=== PATIENT | female | born 1985 | race Caucasian/White ===

== ENCOUNTER 2016-09-06 09:26 | Day surgery (SDC) | payer OTHER ==
[2016-09-05 13:06] VITALS: BMI 36.7
[~2016-09-06] VITALS: Ht 170.2 cm; Wt 109.7 kg
[2016-09-06] VITALS (12 sets, daily range): BP systolic 133–151; BP diastolic 75–90; PULSE 72–89; RESP 11–21; Ht 170.2 cm; Wt 109.7 kg
[~2016-09-06 09:26] MED LIST: CEFAZOLIN 1 GM INJ ONE; LAB200 PO; LACTATED RINGER'S 1,000 ML IV SCH; PREN1TAB49 PO
[2016-09-06 10:42] LABS: ADD SCAN DIFF NO
[2016-09-06 11:02] LABS: BASOPHILS % 0.4 % (0.0-2.0); EOSINOPHILS # 0.2 10^3/ul (0.0-0.5); EOSINOPHILS % 3.1 % (0.0-7.0); HEMATOCRIT 31.7 % (37.0-47.0); HEMOGLOBIN 10.3 g/dl (12.0-16.0); LYMPHOCYTES # 1.9 10^3/ul (0.8-2.9); MEAN CORPUSCULAR HEMOGLOBIN 25.6 pg (29.0-33.0); MEAN CORPUSCULAR HGB CONC 32.5 g/dl (32.0-37.0); MEAN CORPUSCULAR VOLUME 78.7 fl (82.0-101.0); MEAN PLATELET VOLUME 9.9 fl (7.4-10.4); MONOCYTE # 0.4 10^3/ul (0.3-0.9); MONOCYTES % 6.3 % (0.0-11.0); NEUTROPHIL # 4.2 10^3/ul (1.6-7.5); NEUTROPHILS % 62.1 % (39.0-77.0); PLATELET COUNT 249 10^3/UL (140-415); RED BLOOD COUNT 4.03 10^6/ul (4.20-5.40); RED CELL DISTRIBUTION WIDTH 13.3 % (11.5-14.5); WHITE BLOOD COUNT 6.8 10^3/ul (4.8-10.8)
[2016-09-06] MEDS ORDERED: BUPIVACAINE 0.5%/EPI (SDV) 30 ML INJ ONE ×2 (11:16→12:47)
[2016-09-06] MEDS ORDERED: LIDOCAINE 2% (SDV) 5 ML INJ ONE (11:32)
[2016-09-06] MEDS ORDERED: ROCURONIUM 50 MG INJ ONE (11:32)
[2016-09-06] MEDS ORDERED: PROPOFOL 40 ML ONE (11:32)
[2016-09-06] MEDS ORDERED: SUCCINYLCHOLINE CHLORIDE 100 MG/5 ML SYG IV ONE (11:32)
[2016-09-06] MEDS ORDERED: FENTAnyl 50 MCG/ML VIAL ONE ×2 (11:32→13:37)
[2016-09-06] MEDS ORDERED: DEXAMETHASONE 4 MG/ML 1 ML INJ ONE (11:32)
[2016-09-06] MEDS ORDERED: ONDANSETRON 4 MG INJ ONE (11:32)
[2016-09-06] MEDS ORDERED: ACETAMINOPHEN 1000MG/100ML IV 100 ML ONE (11:37)
[2016-09-06] MEDS ORDERED: METOCLOPRAMIDE 10 MG INJ ONE (13:22)
[2016-09-06] MEDS ORDERED: NEOSTIGMINE 3 MG/3 ML SYRINGE ONE ×2 (13:24→13:52)
[2016-09-06] MEDS ORDERED: GLYCOPYRROLATE 0.4 MG INJ ONE ×2 (13:24→13:52)
--- NOTE | 2016-09-06 13:24 | PREOPHP ---
DATE OF ADMISSION: 09/06/2016 HISTORY OF PRESENT ILLNESS: A 30-year-old female 4, para 3, AB 1, last menstrual period 04/2017, is admitted for voluntary sterilization. PAST MEDICAL HISTORY: Unremarkable. PAST SURGICAL HISTORY: Laparoscopic cholecystectomy. ALLERGIES: NO KNOWN ALLERGIES. FAMILY HISTORY: Diabetes. PHYSICAL EXAMINATION: VITAL SIGNS: Patient is afebrile. Vital signs stable. HEAD, NECK AND CHEST: Within normal limits. ABDOMEN: Soft, nontender and nondistended. PELVIC: Normal. EXTREMITIES: Within normal limits. NEUROLOGIC: Within normal limits. IMPRESSION: Voluntary sterilization. PLAN: Minilaparotomy, bilateral tubal ligation. Risks, benefits and alternatives of the procedure were explained to patient. The patient has been counseled about all of her contraceptive options, i ncluding all methods of sterilization. It was explained to patient that with bilateral tubal ligati on there is a chance of failure resulting in ectopic and/or intrauterine . After counseling, the patient said that she understood and gave informed consent for the procedure. Dictated By: LELE BOOTH/JESSI Conf#: [id number] DID#: [id number]
[2016-09-06] MEDS ORDERED: DIPHENHYDRAMINE 50 MG INJ IV PRN (14:00)
[2016-09-06] MEDS ORDERED: ALBUTEROL 0.083% (NEB) 2.5 MG/3 ML AMP HHN ONE (14:00)
[2016-09-06] MEDS ORDERED: MEPERIDINE 25 MG INJ IV PRN (14:00)
[2016-09-06] MEDS ORDERED: ONDANSETRON 4 MG INJ IV PRN ×2 (14:00→14:30)
[2016-09-06] MEDS ORDERED: FENTAnyl 50 MCG/ML VIAL IV PRN ×2 (14:00)
[2016-09-06] MEDS ORDERED: HYDROmorphONE (0.2 MG/ML) 10ML SYG IV PRN (14:00)
[2016-09-06] MEDS ORDERED: OXYCODONE/ACETAMINOPHEN (5/325) TAB PO PRN (14:30)
[2016-09-06] MEDS ORDERED: morphine 2 MG INJ IV PRN (14:30)
[2016-09-06] MEDS ORDERED: KETOROLAC 30 MG INJ IV PRN (14:30)
--- NOTE | 2016-09-06 14:41 | OPR ---
DATE OF OPERATION: 09/06/2016 PREOPERATIVE DIAGNOSIS: Voluntary sterilization. POSTOPERATIVE DIAGNOSIS: Voluntary sterilization. OPERATION PERFORMED: Minilaparotomy, bilateral tubal ligation. SURGEON: Lele Morocho MD DIGITAL PRESS OPERATOR: voip technician. ANESTHESIA: General. PROCEDURE: The patient was taken to the operating room and placed on the operating table in supine position. After adequate general anesthesia was given, the area was prepared and draped in the usua l sterile fashion. Using a scalpel, a Pfannenstiel incision was made about 2 fingerbreadths above the symphysis pubis. The incision was carried down to the fascia. The fascia was incised and extended bilaterally with Bovie. Two Kochers were used to separate the fascia from the muscle. The muscle was dissected in m idline down to peritoneum. The peritoneum was secured with 2 Kellys and incised with Metzenbaum sci ssors. Upon entering the peritoneal cavity, the right fallopian tube was grasped with a [place] cla mp and followed to its fimbrial end to confirm its identity. Using 0 plain suture ligature, a 5 cm segment of the right fallopian tube was doubly ligated. Using Metzenbaum scissors, a portion of the right fallopian tube above the ligated area was excised and sent to pathology. Same procedure was repeated on the left fallopian tube. After assuring hemostasis, the muscle was reapproximated with 0 chromic. The fascia was closed with 0 Vicryl continuous. Subcutaneous tissue was reapproximated with 2-0 chromic. Skin was closed with zachary. ESTIMATED BLOOD LOSS: Minimal. COMPLICATIONS: None. COUNTS: All counts were correct. Dictated By: LELE BOOTH/JESSI Conf#: [id number] DID#: [id number]
== END 2016-09-06 17:31 | disposition home or self-care (01) ==
LOC: SDS 09:26
PROVIDERS: ATTEND Obstetrics & Gynecology
DX: Z30.2 Encounter for sterilization (principal)
CPT/HCPCS: 58600; 85025; 88302; J0131; J0330; J0690; J1100; J1170; J1885; J2405; J2710; J2765; J3010; Z7512; Z7610

== ENCOUNTER 2017-10-16 05:57 | Day surgery (SDC) | END 2017-10-16 12:32 | disposition home or self-care (01) ==